=== PATIENT | female | born 1990 | race Caucasian/White ===

== ENCOUNTER 2019-05-20 23:38 | Emergency (ER) | payer OTHER ==
[~2019-05-20] VITALS: Ht 167.6 cm; Wt 142.0 kg
[2019-05-20 23:44] VITALS: Ht 167.6 cm; Wt 142.0 kg
[2019-05-21 02:35] VITALS: BP 130/81
== END 2019-05-21 02:35 | disposition home or self-care (01) ==
LOC: ED 23:38
DX: S90.32XA Contusion of left foot, initial encounter (principal); M62.830 Muscle spasm of back; W10.9XXA Fall (on) (from) unspecified stairs and steps, initial encounter; Y93.89 Activity, other specified; Y92.89 Other specified places as the place of occurrence of the external cause; Y99.8 Other external cause status
CPT/HCPCS: J1885